=== PATIENT | female | born 1995 | race Two or more races ===

== ENCOUNTER 2017-10-22 10:51 | Outpatient (CLI) | payer OTHER | END 2017-10-22 10:55 | disposition home or self-care (01) | LOC: LAB 10:51 | DX: Z34.92 Encounter for supervision of normal pregnancy, unspecified, second trimester (principal) ==

== ENCOUNTER 2017-12-10 08:08 | Outpatient (CLI) | payer OTHER | END 2017-12-10 08:24 | disposition home or self-care (01) | LOC: SONOGRAMA 08:08 | DX: Z34.82 Encounter for supervision of other normal pregnancy, second trimester (principal); Z3A.20 20 weeks gestation of pregnancy ==